=== PATIENT | female | born 1995 | race Caucasian/White ===

== ENCOUNTER 2018-05-29 16:38 | Day surgery (SDC) | payer MEDICAID ==
[2018-05-29 17:03] VITALS: BP 126/73; TEMP 98.9
[2018-05-29 17:04] VITALS: BMI 27.8
--- NOTE | 2018-05-29 17:51 | PDOC.LDHP ---
Labor and Delivery H&P Chief complaint: decreased movement HPI: 22 y/o G1 at 25w6d presents with decreased movement. Denies VB, LOF, ctx , or other concerns. care in [place] but here visiting her grandmother. ROS neg for HEENT, CV, pulm, GI, , neuro, psych, skin, musculoskeletal, or constitutional symptoms other than mentioned above. OB History Details: First Current complications: none Past Medical History: +Chlamydia this , has been treated but no test of cure yet. Current medications: pre-mal vitamins Previous surgical history: none Allergies/Adverse Reactions: Allergies Allergy/AdvReac Type Severity Reaction Status Date / Time Penicillins Allergy Unknown Verified 05/29/18 17:01 Social history: none - Physical Exam Vital signs reviewed and normal: yes General: NAD, resting Lungs: nonlabored breathing Abdomen: gravid Extremeties: no edema FHT: category 1 (140s, mod variability) [place] contractions every: irritability - Assessment 22 y/o G1 at 25w6d with reassuring status. Advised to stay well hydrated as patient drinks approximately 1 bottle of water max per day. - Plan -: D/c home with precautions. Advised to keep all appointments.
== END 2018-05-29 17:50 | disposition home or self-care (01) ==
LOC: L&D/OP 16:38
PROVIDERS: ATTEND Obstetrics & Gynecology
DX: O36.8120 Decreased fetal movements, second trimester, not applicable or unspecified (principal); O98.812 Other maternal infectious and parasitic diseases complicating pregnancy, second trimester; Z3A.25 25 weeks gestation of pregnancy; Z88.0 Allergy status to penicillin
CPT/HCPCS: 99282